=== PATIENT | male | born 1950 ===

== ENCOUNTER 2021-05-21 04:23 | Day surgery (SDC) | payer OTHER, BC ==
[2021-05-19 16:53] VITALS: BMI 23.0
[2021-05-21] MEDS ORDERED: LIDOCAINE HCL 1%, 10 MG/ML (20ML VIAL) ONE (07:12)
[2021-05-21] MEDS ORDERED: BUPIVACAINE HCL/PF 0.5% (5MG/ML) 10 ML VIAL ONE (07:13)
[2021-05-21] MEDS ORDERED: PROPOFOL 20 ML ONE ×3 (07:41→10:58)
[2021-05-21] MEDS ORDERED: MIDAZOLAM HCL 2 MG/2 ML SINGLE DOSE VIAL ONE ×2 (07:41)
[2021-05-21] MEDS ORDERED: ONDANSETRON 4 MG/2 ML VIAL ONE (07:41)
[2021-05-21] MEDS ORDERED: ceFAZolin SODIUM 1 GM VIAL IVPB ONE (08:30)
[2021-05-21] MEDS ORDERED: BUPIVACAINE HCL/PF 0.5% (5MG/ML) 10 ML VIAL IJ ONE (08:47)
[2021-05-21] MEDS ORDERED: LIDOCAINE HCL 1%, 10 MG/ML (20ML VIAL) SQ ONE (08:47)
[2021-05-21] MEDS ORDERED: ONDANSETRON 4 MG/2 ML VIAL IVPUSH PRN (09:07)
[2021-05-21] MEDS ORDERED: oxyCODONE HCL 5 MG TABLET PO PRN ×2 (09:07)
[2021-05-21] MEDS ORDERED: LACTATED RINGERS SOLUTION 1,000 ML IV SCH (09:15)
[2021-05-21 12:23] VITALS: BP 120/70; PULSE 70; TEMP 98.7
== END 2021-05-21 11:30 | disposition home or self-care (01) ==
LOC: JASU-SURG 04:23
PROVIDERS: ATTEND Orthopaedic Surgery
PROC: 01N50ZZ Release Median Nerve, Open Approach (ICD-10-PCS; principal; 2021-05-21 08:00)
DX: G56.01 Carpal tunnel syndrome, right upper limb (principal)
CPT/HCPCS: 88304-TC